=== PATIENT | female | born 1945 | race Caucasian/White ===

== ENCOUNTER 2016-10-22 10:55 | Emergency (ER) | payer MEDICARE ==
[2016-10-22 11:39] VITALS: BP 165/82
--- NOTE | 2016-10-22 12:35 | RAD ---
HISTORY: Status post fall, tender base of right fifth metatarsal and tender right lateral and medial malleolus COMPARISONS: None VIEWS: 3, Frontal, lateral, and oblique views of the right ankle FINDINGS: BONE DENSITY: Normal. BONES: There is an oblique nondisplaced fracture of the distal fibula. JOINTS: There is no arthropathy. The tibiofibular interval is preserved. ALIGNMENT: There is no dislocation. SOFT TISSUES: There is soft tissue swelling OTHER FINDINGS: None. IMPRESSION: OBLIQUE NONDISPLACED FRACTURE OF THE DISTAL FIBULA
--- NOTE | 2016-10-22 12:36 | RAD ---
HISTORY: Right ankle pain, trauma COMPARISONS: Right ankle film dated October 22, 2016 VIEWS: 2, Frontal and lateral views of the right foreleg FINDINGS: BONE DENSITY: Normal. BONES: Again noted is an oblique fracture of the distal fibula JOINTS: There is no arthropathy. ALIGNMENT: There is no dislocation. SOFT TISSUES: Unremarkable. OTHER FINDINGS: None. IMPRESSION: AGAIN NOTED IS AN OBLIQUE FRACTURE OF THE DISTAL FIBULA
--- NOTE | 2016-10-22 12:36 | RAD ---
HISTORY: Trauma, tender base of right fifth metatarsal COMPARISONS: Right ankle dated October 22, 2016 VIEWS: 3, Frontal, lateral, and oblique views of the right foot FINDINGS: BONE DENSITY: Normal. BONES: Again noted is a nondisplaced fracture of the distal fibula JOINTS: There is no arthropathy. ALIGNMENT: There is no dislocation. SOFT TISSUES: Unremarkable. OTHER FINDINGS: None. IMPRESSION: AGAIN NOTED IS A FRACTURE OF THE DISTAL FIBULA. NO ACUTE OSSEOUS INJURY TO THE RIGHT FOOT. IF SYMPTOMS PERSIST, RECOMMEND REPEAT IMAGING.
--- NOTE | 2016-10-22 14:01 | UC ---
Manolo Hurd Michael, scribed for Tabby Harrington DO on 10/22/16 at 1213 . Lower Extremity/Ankle HPI - HPI Summary HPI Summary: 70 y/o female comes to the [facility] after a mechanical fall that occurred at 1030 this morning. The pt reports right ankle and right foot pain that radiates up the RLE until the right knee. She states that the pain is aggravated with palpation and movement. The pt cannot bear weight on the right foot. She denies all of associated sx. The FHx is significant for cardiac disease and DM. - History of Current Complaint Chief Complaint: UCLowerExtremity Stated Complaint: ANKLE INJURY Hx Obtained From: Patient, Medical Records Onset/Duration: Sudden Onset, Lasting Hours, Still Present Severity Initially: Moderate Severity Currently: Moderate Pain Intensity: 9 Pain Scale Used: 0-10 Numeric Aggravating Factor(s): Standing, Other - palpation Able to Bear Weight: No - Allergies/Home Medications Allergies/Adverse Reactions: Allergies Allergy/AdvReac Type Severity Reaction Status Date / Time Magnesium Allergy Unknown Verified 10/22/16 11:31 Reaction Details PMH/Surg Hx/FS Hx/Imm Hx Endocrine History Of: Reports: Thyroid Disease Cardiovascular History Of: Denies: Pacemaker/ICD - Surgical History Surgical History: Yes Surgery Procedure, Year, and Place: GALLBLADDER. APPENDECTOMY. FATTY TUMOR REMOVED FROM NECK - Family History Known Family History: Positive: Cardiac Disease, Hypertension, Diabetes - Social History Occupation: Retired Lives: With Family Alcohol Use: None Substance Use Type: None Smoking Status (MU): Never Smoked Tobacco Have You Smoked in the Last Year: No - Immunization History Most Recent Influenza Vaccination: none Review of Systems Constitutional: Negative Skin: Negative Eyes: Negative ENT: Negative Respiratory: Negative Cardiovascular: Negative Gastrointestinal: Negative Genitourinary: Negative Motor: Other - right foot and ankle pain Neurovascular: Negative Musculoskeletal: Negative Neurological: Negative Psychological: Negative All Other Systems Reviewed And Are Negative: Yes Physical Exam Triage Information Reviewed: Yes Appearance: Well-Appearing, Pain Distress - mild, Obese Vital Signs: Initial Vital Signs Temp 99.4 F 10/22/16 11:34 Pulse 81 10/22/16 11:34 Resp 16 10/22/16 11:34 BP 165/82 10/22/16 11:34 Pulse Ox 98 10/22/16 11:34 Vital Signs Reviewed: Yes Eyes: Positive: Conjunctiva Clear. Negative: Discharge ENT: Positive: Hearing grossly normal. Negative: Muffled/hoarse voice Neck: Positive: Supple, Nontender Respiratory: Positive: Lungs clear, Normal breath sounds, No respiratory distress, No accessory muscle use Cardiovascular: Positive: RRR, No Murmur Musculoskeletal: Positive: Strength Intact, Edema @ - swelling over lateral maleolus, Other: - tender proximal 3rd fibular shaft, medial and lateral malleolus talar dome and base of the fifth metatarsal Neurological: Positive: Alert, Muscle Tone Normal Psychological Exam: Normal Psychological: Positive: Age Appropriate Behavior Skin: Positive: Other - warm. dry. nml color. Diagnostics - Radiology RLE XR Xray Interpretation: Positive (See Comments) - OBLIQUE NONDISPLACED FRACTURE OF THE DISTAL FIBULA Radiology Interpretation Completed By: Radiologist Right ankle XR Xray Interpretation: Positive (See Comments) - OBLIQUE NONDISPLACED FRACTURE OF THE DISTAL FIBULA Radiology Interpretation Completed By: Radiologist Right foot XR Xray Interpretation: Positive (See Comments) - OBLIQUE NONDISPLACED FRACTURE OF THE DISTAL FIBULA Radiology Interpretation Completed By: Radiologist Lower Extremity Course/Dx - Differential Dx/Diagnosis Differential Diagnosis/HQI/PQRI: Contusion, Fracture (Closed), Sprain Provider Diagnoses: ankle fx, suspected fx Discharge - Discharge Plan Condition: Stable Disposition: HOME Prescriptions: HYDROcodone/ACETAMIN 5-325 MG* [[place] 5-325 TAB*] 1 tab PO Q6H PRN #14 tab MDD 4 TABS PRN Reason: Pain Patient Education Materials: Ankle Fracture (ED), Crutch Instructions (ED), Splint Care (ED), SUSPECTED FRACTURE (ED) Referrals: Mimi Dawkins MD [Medical Doctor] - (follow up as per ortho or in 5-7 days) Chrissie Key [Primary Care Provider] - If Needed Additional Instructions: Your history and exam is suspicous for possible occult fracture of the base of the 5th metatarsal. This is a fracture that can have a bad outcome if not properly immobilized. So, we will treat this as a fracture until proven otherwise. That means that you must wear the WALKING BOOT 24 hours a day until the ortho provider tells you otherwise. You should also remain NON-WEIGHT BEARING until told otherwise by the orthopedist, so walking and standing should be done with the help of crutches. It will take 5-7 days to establish whether or not your bone is fractured. ORAL NARCOTIC MEDICATION: You have been given a prescription for pain control. This medication is a narcotic. It's best taken with food, as nausea can result if taken on an empty stomach. Don't operate machinery or drive within six hours of taking this medication. Do not combine this medicine with alcohol, or with any medication which can cause sedation (such as cold tablets or sleeping pills) unless you get permission from the physician. Narcotics tend to cause constipation. If possible, drink plenty of fluids and eat a diet high in fiber and fruits. THIS MEDICATION CAN MAKE YOU GROGGY AND UNSTABLE OF YOUR FEET. SO PLEASE TAKE CARE WHEN GOING FROM LAYING DOWN TO SEATED OR WHEN STANDING UP. IF YOU FEEL LIGHT HEADED WHEN CHANGING POSITIONS, PLEASE SIT OR LAY BACK DOWN TO AVOID FALLING. ESPECIALLY WHEN WAKING UP AT NIGHT TO PEE. The documentation as recorded by the Manolo seals Michael accurately reflects the service I personally performed and the decisions made by me, Tabby Harrington DO.
== END 2016-10-22 13:30 | disposition home or self-care (01) ==
LOC: UCEAST 10:55
DX: S82.434A Nondisplaced oblique fracture of shaft of right fibula, initial encounter for closed fracture (principal); W19.XXXA Unspecified fall, initial encounter
CPT/HCPCS: 99213; G0463

== ENCOUNTER 2019-02-08 14:38 | Emergency (ER) | payer MEDICARE ==
--- NOTE | 2019-02-08 15:23 | ED ---
HPI Chest Pain - HPI Summary HPI Summary: 73 year old F presenting to [facility] complains of midsternal tingliness since walking her dog at 09:30 today, 02/08/19. The patient rates the pain 2/10 in severity. Symptoms aggravated by exertion. Symptoms alleviated by nothing. Patient reports dizziness, nausea, diaphoresis, fatigue. She feels unwell. Patient denies lightheadedness, shortness of breath, headache. After walking her dog, patient sat down, ate breakfast, and felt better after drinking tea. Patient felt tired so she took a nap and woke up at 10:30. Patient said she carried plants from her porch to basement because it was snowing, then felt another episode of feeling unwell. Patient took her blood pressure which was [address] Harrington who referred patient to ED. Patient retook blood pressure which was 170 systolic. Patient feels better now in room. Patient has hx hypothyrodism. Vital signs while in room: HR 73 bpm, BP 148/71, O2 sat 100% Home Medications Medication Instructions Recorded Confirmed Type P Thyroid 3.5 PO DAILY 09/01/13 02/08/15 History Vitamin D 1 tab PO DAILY 02/08/15 10/22/16 History HYDROcodone/ACETAMIN 5-325 MG* 1 tab PO Q6H PRN #14 tab MDD 4 TABS 10/22/16 Rx [[place] 5-325 TAB*] - History of Current Complaint Chief Complaint: EDChestPainROMI Time Seen by Provider: 02/08/19 15:18 Hx Obtained From: Patient Onset/Duration: Started Hours Ago - 09:30 today, Still Present Timing: Intermittent Current Severity: Mild Pain Intensity: 2 Pain Scale Used: 0-10 Numeric Chest Pain Location: Mid Sternal Character: Other: - tingliness Aggravating Factor(s): Exertion Alleviating Factor(s): Nothing Associated Signs and Symptoms: Positive: Negative - lightheadedness, shortness of breath, headache, Other: - dizziness, nausea, diaphoresis, fatigue - Allergy/Home Medications Allergies/Adverse Reactions: Allergies Allergy/AdvReac Type Severity Reaction Status Date / Time magnesium Allergy Unknown Verified 02/08/19 14:44 Reaction Details National Institutes Of Health - NIH Scale Level of Consciousness: Alert/Keenly Responsive Ask Patient the Month and His/Her Age: Both Correct Ask Pt to Open/Close Eyes and Vessel Welder/Release Non-Paretic Hand: Both Correctly Best Gaze (Only Horizontal Eye Movement): Normal Visual Field Testing: No Visual Loss Facial Paresis-Pt to Smile & Close Eyes or Grimace Symmetry: Normal/Symmetrical Motor Function - Right Arm: No Drift-Holds 10 Seconds Motor Function - Left Arm: No Drift-Holds 10 Seconds Motor Function - Right Leg: No Drift-Holds 10 Seconds Motor Function - Left Leg: No Drift-Holds 10 Seconds Limb Ataxia-Must be out of Proportion to Weakness Present: Absent Sensory (Use Pinprick to Test Arms/Legs/Trunk/Face): Normal Best Language (Describe Picture, Name Items): No Aphasia Dysarthria (Read Several Words): Normal Extinction and Inattention: No Abnormality Total Score: 0 PMH/Surg Hx/FS Hx/Imm Hx Previously Healthy: No - vitamin D deficiency Endocrine/Hematology History: Reports: Hx Thyroid Disease Cardiovascular History: Denies: Hx Pacemaker/ICD GI History: Reports: Hx Irritable Bowel Musculoskeletal History: Denies: Hx Osteoporosis Sensory History: Reports: Hx Contacts or Glasses Denies: Hx Hearing Aid Opthamlomology History: Reports: Hx Contacts or Glasses Psychiatric History: Denies: Hx Panic Disorder - Surgical History Surgery Procedure, Year, and Place: GALLBLADDER. APPENDECTOMY. FATTY TUMOR REMOVED FROM NECK Infectious Disease History: No Infectious Disease History: Denies: Hx Clostridium Difficile, Hx Hepatitis, Hx Human Immunodeficiency Virus (HIV), Hx of Known/Suspected MRSA, Hx Shingles, Hx Tuberculosis, Hx Known/ Suspected VRE, Hx Known/Suspected VRSA, History Other Infectious Disease, Traveled Outside the [place] in Last 30 Days - Family History Known Family History: Positive: Cardiac Disease, Hypertension, Diabetes - Social History Alcohol Use: None Hx Substance Use: No Substance Use Type: Reports: None Hx Tobacco Use: No Smoking Status (MU): Never Smoked Tobacco Have You Smoked in the Last Year: No Review of Systems Positive: Fatigue, Skin Diaphoresis Positive: Other - midsternal tingliness Negative: Shortness Of Breath Positive: Nausea Neurological: Negative - Lightheadedness, Other - Dizziness Negative: Headache All Other Systems Reviewed And Are Negative: Yes Physical Exam - Summary Physical Exam Summary: Appearance: Ill-appearing, moderate pain distress, well-nourished Skin: Warm, color reflects adequate perfusion, dry Head: Normal Head/Face inspection, atraumatic Eyes: Conjunctiva clear ENT: Normal inspection Neck: Supple, no nodes, no JVD Respiratory: Lungs clear, normal breath sounds, no respiratory distress Cardio: RRR, No murmur, pulses normal, brisk capillary refill Abdomen: Soft, nontender Bowel sounds: Present Musculoskeletal: Strength Intact/ROM intact, no calf tenderness, no edema. Psychological: Normal Neuro: Alert, muscle tone normal, no focal deficit GCS: 15 Triage Information Reviewed: Yes Vital Signs On Initial Exam: Initial Vitals Temp Pulse Resp BP Pulse Ox 97.3 F 81 14 158/75 98 02/08/19 14:44 02/08/19 14:44 02/08/19 14:44 02/08/19 14:44 02/08/19 14:44 Vital Signs Reviewed: Yes Diagnostics - Vital Signs Vital Signs Temp Pulse Resp BP Pulse Ox 02/08/19 14:44 97.3 F 81 14 158/75 98 - Laboratory Result Diagrams: 02/08/19 15:55 02/08/19 15:55 Lab Statement: Any lab studies that have been ordered have been reviewed, and results considered in the medical decision making process. - Radiology CXR Radiology Interpretation Completed By: Radiologist Summary of Radiographic Findings: NO ACTIVE CARDIOPULMONARY DISEASE. ED physician has reviewed this report. - CT Brain CT Interpretation Completed By: Radiologist Summary of CT Findings: Negative noncontrast head CT. ED physician has reviewed this report. - EKG 1454 Cardiac Rate: NL - 66 BPM EKG Rhythm: Sinus Rhythm ST Segment: Non-Specific Ectopy: None EKG Comparison: Other - No prior to compare to Summary of EKG Findings: Nml AV/IV CT, nml QTc, and nml axis. No acute changes. Re-Evaluation - Re-Evaluation First Eval Re-Evaluation Time: 17:17 Change: Worse Comment: Patient has headache and nausea. Will give Zofran and Tylenol. Second Eval Re-Evaluation Time: 18:00 Change: Unchanged Comment: She has nausea, no pain. Her feet are cold and sweaty. Third Eval Re-Evaluation Time: 19:17 Change: Unchanged Comment: Patient has had her 3rd spell of dizziness. In room, BP 171/84, HR [address] BPM. Patient agrees to get CT. Fourth Eval Re-Evaluation Time: 19:38 Change: Unchanged Comment: BP 167/70, HR 79 BPM. Updated patient on what Dr. Merino recommended. Daughter is with patient. Fifth Eval Re-Evaluation Time: 21:05 Change: Unchanged Comment: Patient given CT and CXR results. Patient is agreeable to discharge. Chest Pain Course/Dx - Course Course Of Treatment: Patient medications reviewed this visit. Nurses notes reviewed. Allergies noted. CXR shows NO ACTIVE CARDIOPULMONARY DISEASE. EKG was normal. Bloodwork was unremarkable. Troponins were 0. UAs showed trace bacteria. NIH 0. Spoke with Dr. Merino, neurology, said that patient's symptoms do not sound like acute stroke at the time based on my report to him. He agrees with CT. He does not believe additional work up is needed. CT Brain shows Negative noncontrast head CT. Patient will be discharged home with follow up from Dr. Key, primary care provider, in 1-2 days. Patient was instructed to return to ED for new or worsening symptoms. Patient understands and is agreeable to discharge plan. - Diagnoses Provider Diagnoses: Hypertension, Lightheadedness, Dizziness - Provider Notifications Discussed Care Of Patient With: Steve Merino Time Discussed With Above Provider: 19:34 Instructed by Provider To: Other - Dr. Merino, neurology, said that patient's symptoms do not sound like acute stroke at the time based on my report to him. He agrees with CT. He does not believe additional work up is needed. Discharge - Sign-Out/Discharge Documenting (check all that apply): Patient Departure - Discharge Patient Received Moderate/Deep Sedation with Procedure: No - Discharge Plan Condition: Stable Disposition: HOME Patient Education Materials: Hypertension (ED), Lightheadedness (ED), Dizziness (ED) Referrals: Chrissie Key [Primary Care Provider] - 2 Days Tabby Harrington DO [Doctor of Osteopathy] - 2 Days Additional Instructions: Have definite follow up with Dr. Key, your primary care provider, in the next 1-2 days. We did not find any serious cause for your symptoms today. We have given you a copy of CT Brain and chest x-ray scans. Your labs will print with these discharge papers. Your blood pressure was quite elevated in the Emergency Department. You will need to have your blood pressure checked by your doctor and consider medication. Keep track of your blood pressure at home. Return to the Emergency Department for new or worsening symptoms. - Attestation Statements Document Initiated by Scribe: Yes Documenting Scribe: Charito Robertson Provider For Whom Scribe is Documenting (Include Credential): Roopa Aranda MD Scribe Attestation: Charito Hurd, scribed for Roopa Aranda MD on 02/08/19 at 2124. Status of Scribe Document: Ready
[2019-02-08] MEDS ORDERED: NS 0.9% 1000 ML** 2,000 ML IV SCH (15:45)
[2019-02-08 16:08] LABS: ABS Basophils 0.1 10^3/ul (0-0.2); ABS Eosinophils 0.1 10^3/ul (0-0.6); ABS Lymphocytes 2.5 10^3/ul (1.0-4.8); ABS Monocytes 0.7 10^3/ul (0-0.8); ABS Neutrophils 7.2 10^3/ul (1.5-7.7); ABS Nucleated RBC 0 10^3/ul; Eosinophil % 0.6 %; Hematocrit 39 % (33-41); Hemoglobin 13.2 g/dL (12.0-16.0); Lymphocyte % 23.5 %; Mean Corpuscular HGB Conc 34 g/dL (31-36); Mean Corpuscular Hemoglobin 30 pg (27-31); Mean Corpuscular Volume 89 fL (80-97); Mean Platelet Volume 9.8 fL (7.4-10.4); Nucleated Red Blood Cells % 0.1; Platelet Count 292 10^3/uL (150-450); Red Blood Count 4.37 10^6 /uL (3.70-4.87); Red Cell Distribution Width 13 % (10.5-15); White Blood Count 10.5 10^3/uL (3.5-10.8)
[2019-02-08 16:19] LABS: Activated Partial Thrombo Time 30.8 seconds (26.0-36.3); INR 0.98 (0.82-1.09)
[2019-02-08 16:22] LABS: Albumin 4.4 g/dL (3.2-5.2); Albumin/Globulin Ratio 1.5 (1-3); BUN/Creatinine Ratio 23.4 (8-20); Calcium 9.5 mg/dL (8.6-10.3); EGFR African American 109.8 (>60); EGFR Non-African American 90.7 (>60); Globulin 2.9 g/dL (2-4); Magnesium 2.1 mg/dL (1.9-2.7); Potassium 4.2 mmol/L (3.5-5.0); Total Bilirubin 0.3 mg/dL (0.2-1.0); Total Protein 7.3 g/dL (6.4-8.9)
[2019-02-08 16:30] LABS: CKMB ng/mL 1.9 ng/mL (0.6-6.3)
[2019-02-08 16:40] LABS: Urine Appearance Clear; Urine Bacteria Absent (Absent); Urine Bilirubin Negative (Negative); Urine Blood Negative (Negative); Urine Color Straw; Urine Glucose Negative (Negative); Urine Ketones Negative (Negative); Urine Nitrite Negative (Negative); Urine Protein Negative (Negative); Urine Red Blood Cell Trace(0-2/hpf) (Absent); Urine Specific Gravity 1.004 (1.010-1.030); Urine Squamous Epithelial Cell Present (Absent); Urine Urobilinogen Negative (Negative); Urine White Blood Cell Trace(0-5/hpf) (Absent)
[2019-02-08 16:42] LABS: T4, Total 8.16 mcg/dL (6.09-12.23)
[2019-02-08] MEDS ORDERED: Ondansetron INJ* 2 MG/ML VIAL IV ONE (17:17)
[2019-02-08] MEDS ORDERED: Acetaminophen TAB* 325 MG PO ONE (17:17)
[2019-02-08 21:41] VITALS: BP 173/83
--- NOTE | 2019-02-10 10:10 | PN ---
Progress Note - Progress Note Date of Service: 02/08/19 Note: Urine culture final grew strep group B [id number],[id number] Patient was not placed on antibiotics prior to discharge We will wait for any sensitivities and call patient If patient is asymptomatic, likely will not need treatment
== END 2019-02-08 21:40 | disposition home or self-care (01) ==
LOC: ED 14:38
DX: I10 Essential (primary) hypertension (principal); R42 Dizziness and giddiness; K58.9 Irritable bowel syndrome, unspecified; E03.9 Hypothyroidism, unspecified; Z79.899 Other long term (current) drug therapy; Z88.8 Allergy status to other drugs, medicaments and biological substances
CPT/HCPCS: 36415; 70450; 71045; 80053; 81003; 81015; 82550; 82553; 83605; 83735; 83880; 84436; 84484; 85025; 85379; 85610; 85730; 87077; 87086; 93005; 96361; 96365; 99285; A9270-GY; J2405

== ENCOUNTER 2019-08-21 11:13 | Emergency (ER) | payer MEDICARE ==
--- NOTE | 2019-08-21 11:46 | ED ---
Hypertension - HPI Summary HPI Summary: The patient is a 73 y/o F presenting to [facility] with a chief complaint of intermittent episodes of nausea, dizziness, and chills onset last night. She reports that the symptoms began last night but resolved as she went to sleep. She woke up with a headache that resolved, and she continued with her day and went to yoga. At her yoga class, she started to feel unwell again with the nausea, dizziness/lightheaded, and chills, so her instructor measured her BP to find it elevated of over 200 mmHg systolic. In the ED, she is still experiencing these mild symptoms, but she additionally c/o fatigue. She denies any CP, SOB, abd pain, back pain, weakness, or numbness. Currently, her symptoms are rated 0/10 in severity. PMHx: thyroid disease. FHx: cardiac disease , DM, HTN. Nonsmoker, no EtOH, no substance use. Medications reviewed. Allergies noted. - History of Current Complaint Chief Complaint: EDHypertension Stated Complaint: HIGH BP,NAUSEA PER PT Time Seen by Provider: 08/21/19 11:33 Hx Obtained From: Patient Onset/Duration: Started Hours Ago, Still Present Timing: Intermittent, Lasting Minutes Reported Blood Pressure Prior To Arrival: 200+ mmHg systolic Aggravating Factor(s): Nothing Alleviating Factor(s): Nothing Associated Signs & Symptoms: Headaches - resolved, Dizziness, Other: - fatigue, nausea, chills; Negative: CP, SBO, abd pain, back pain, weakness, numbness - Allergies/Home Medications Allergies/Adverse Reactions: Allergies Allergy/AdvReac Type Severity Reaction Status Date / Time magnesium Allergy Vomiting Verified 08/21/19 11:21 Home Medications: Home Medications Thyroid,Pork [[place] Thyroid] 180 mg PO DAILY 08/21/19 [History Confirmed ] PMH/Surg Hx/FS Hx/Imm Hx Endocrine/Hematology History: Reports: Hx Thyroid Disease - hypothyroidism Cardiovascular History: Denies: Hx Pacemaker/ICD GI History: Reports: Hx Irritable Bowel Musculoskeletal History: Denies: Hx Osteoporosis Sensory History: Reports: Hx Contacts or Glasses Denies: Hx Hearing Aid Opthamlomology History: Reports: Hx Contacts or Glasses Psychiatric History: Denies: Hx Panic Disorder - Surgical History Surgical History: Yes Surgery Procedure, Year, and Place: GALLBLADDER. APPENDECTOMY. FATTY TUMOR REMOVED FROM NECK Infectious Disease History: No Infectious Disease History: Denies: Hx Clostridium Difficile, Hx Hepatitis, Hx Human Immunodeficiency Virus (HIV), Hx of Known/Suspected MRSA, Hx Shingles, Hx Tuberculosis, Hx Known/ Suspected VRE, Hx Known/Suspected VRSA, History Other Infectious Disease, Traveled Outside the [place] in Last 30 Days - Family History Known Family History: Positive: Cardiac Disease, Hypertension, Diabetes - Social History Alcohol Use: None Hx Substance Use: No Substance Use Type: Reports: None Hx Tobacco Use: No Smoking Status (MU): Never Smoked Tobacco Have You Smoked in the Last Year: No Review of Systems Positive: Chills, Fatigue Negative: Chest Pain Negative: Shortness Of Breath Positive: Nausea. Negative: Abdominal Pain Negative: Other - back pain Neurological: Other - dizziness Positive: Headache - resolved. Negative: Weakness, Numbness All Other Systems Reviewed And Are Negative: Yes Physical Exam - Summary Physical Exam Summary: Constitutional: Well-developed, Well-nourished, Alert. (-) Distressed Skin: Warm, Dry HENT: Normocephalic; Atraumatic Eyes: Conjunctiva normal Neck: Musculoskeletal ROM normal neck. (-) JVD, (-) Nuchal rigidity Cardio: Rhythm regular, rate normal, Heart sounds normal; Intact distal pulses; Radial pulses are 2+ and symmetric. (-) Murmur Pulmonary/Chest wall: Effort normal. (-) Respiratory distress, (-) Wheezes, (-) Rales Abd: Soft. (-) Tenderness, (-) Distension, (-) Guarding, (-) Rebound Musculoskeletal: (-) Edema Lymph: (-) Cervical adenopathy Neuro: Alert, PERRL, Oriented x3, Strength normal, Cranial nerves II-XII are grossly intact. SILT, Strength 5/5 BUE and BLE, (-) Dysmetria, (-) Nystagmus, ambulates w steady gait. Psych: Mood and affect Normal Triage Information Reviewed: Yes Vital Signs On Initial Exam: Initial Vitals Temp Pulse Resp BP Pulse Ox 98.4 F 81 16 189/90 97 08/21/19 11:20 08/21/19 11:20 08/21/19 11:20 08/21/19 11:20 08/21/19 11:20 Vital Signs Reviewed: Yes Procedures - Sedation Patient Received Moderate/Deep Sedation with Procedure: No Diagnostics - Vital Signs Vital Signs Temp Pulse Resp BP Pulse Ox 08/21/19 11:20 98.4 F 81 16 189/90 97 - Laboratory Result Diagrams: 08/21/19 11:42 08/21/19 11:42 Lab Statement: Any lab studies that have been ordered have been reviewed, and results considered in the medical decision making process. - Radiology CXR Radiology Interpretation Completed By: Radiologist Summary of Radiographic Findings: Impression: No evidence for acute intrathoracic disease. Minimal LEFT basilar linear atelectasis. ED physician has reviewed this report. - EKG 1207 Cardiac Rate: NL - 77 BPM EKG Rhythm: Sinus Rhythm EKG Comparison: Other - Compared to 02/08/19, there are new T-wave inversions in III. Summary of EKG Findings: An EKG at 1207 reveals normal sinus rhythm at 77 BPM. T -wave inversions in III. No STEMI. ED physician has reviewed and interpreted this EKG. 1305 Cardiac Rate: NL - 79 BPM EKG Rhythm: Sinus Rhythm EKG Comparison: No Significant Change - Similar to previous EKG taken today. Summary of EKG Findings: An EKG at 1305 reveals normal sinus rhythm at 79 BPM. T -wave inversions in III. No STEMI. ED physician has reviewed and interpreted this EKG. Re-Evaluation - Re-Evaluation First Eval Re-Evaluation Time: 15:17 Change: Improved Comment: She is feeling better. We discussed all results and plan for discharge. She declined being put on a blood pressure medication in ED, she would like to follow up with her PCP. Hypertension Course/Dx - Course Course Of Treatment: 73-year-old female with no reported past medical history presents with nausea, elevated blood pressure. - Exam of the well-appearing female, no neuro deficits. Patient reports a minor headache, but denies that this is worse than her normal headache. - patient had similar presentation several months ago, had negative troponin 3 blood pressure at that time. In ED patient's blood pressure is 180 systolic, no chest pain. EKG here me to inversions in lead 3. Troponin negative. - Discussed with patient getting a repeat head CT however she states her symptoms unchanged and not severe. Heart score - HEART Score. Based on a HEART score of 3 the patient has a low risk (<2 % chance) of major adverse cardiac event within the next 6 weeks. I explained to the patient that based on the work-up today, her risk of heart attack is low and that he/she will be discharged with outpatient follow-up. Strict return precautions were discussed regarding worsening chest pain, new / atypical pain, shortness of breath, or any other serious concerns. Patient endorsed understanding and has no questions at this time. Source --. Jessica BE, Six AJ , Bety TANNER, Mayra MA, Mast EG, Williams A, Velnicolas RF,. Wardtorin AJ, Deandre R , Angus R, Wild SH, van Mauri R, Harrison TP, van den Claribel F,. Holly MJ, Cody JM, Umu AW, Pat PA. A prospective validation of. the HEART score for chest pain patients at the emergency department. Int J. Cardiol. 2013 Jul 3;168(3):2153-8. 0-3: 2.5% risk of adverse cardiac event. In the HEART Score, these patients were discharged. (0.99% retrospective) (1.7% prospective). 4-6: 20.3% risk of adverse cardiac event, suggesting admission to the hospital. 11.6% (16.6% prospective). =7: 72.7% risk of adverse cardiac event, suggesting early invasive measures with these patients. 65.2% (50.1% prospective) - Diagnoses Provider Diagnoses: Hypertension Discharge ED - Sign-Out/Discharge Documenting (check all that apply): Patient Departure - Patient will be discharged home. - Discharge Plan Condition: Stable Disposition: HOME Patient Education Materials: Hypertension (ED) Referrals: Chrissie Key [Primary Care Provider] - 3 Days Additional Instructions: You were seen in the emergency department for nausea and high blood pressure. Your EKG (heart tracing), labs and chest x-ray did not show any cause for pain. Your troponin was normal. It is important that you follow up with you primary care doctor in the next 1-2 days for blood pressure recheck. Please return to the emergency department for continued headaches, chest pain, trouble breathing , passing out, or if you're concerned. - Billing Disposition and Condition Condition: STABLE Disposition: Home - Attestation Statements Document Initiated by Scribe: Yes Documenting Scribe: Rhiannon Garcia Provider For Whom Scribe is Documenting (Include Credential): Dr. Roby Allen MD Scribe Attestation: I, Rhiannon Garcia, scribed for Dr. Roby Allen MD on 08/21/19 at 1914. Scribe Documentation Reviewed: Yes Provider Attestation: The documentation as recorded by the Rhiannon seals accurately reflects the service I personally performed and the decisions made by me, Dr. Roby Allen MD Status of Scrkristal Document: Viewed
[2019-08-21] MEDS ORDERED: hydrALAZINE TAB* 25 MG PO ONE (11:48)
[2019-08-21 11:50] LABS: ABS Basophils 0.1 10^3/ul (0-0.2); ABS Lymphocytes 1.8 10^3/ul (1.0-4.8); ABS Monocytes 0.8 10^3/ul (0-0.8); ABS Neutrophils 7.8 10^3/ul (1.5-7.7); Eosinophil % 0.5 %; Hematocrit 40 % (35-47); Hemoglobin 13.6 g/dL (12.0-16.0); Lymphocyte % 16.9 %; Mean Corpuscular HGB Conc 34 g/dL (31-36); Mean Corpuscular Hemoglobin 30 pg (27-31); Mean Corpuscular Volume 90 fL (80-97); Mean Platelet Volume 9.6 fL (7.4-10.4); Platelet Count 317 10^3/uL (150-450); Red Blood Count 4.49 10^6 /uL (3.70-4.87); Red Cell Distribution Width 13 % (10-15); White Blood Count 10.5 10^3/uL (3.5-10.8)
[2019-08-21 12:08] LABS: Albumin 4.4 g/dL (3.2-5.2); Albumin/Globulin Ratio 1.6 (1-3); BUN/Creatinine Ratio 26.1 (8-20); Calcium 9.7 mg/dL (8.6-10.3); EGFR African American 100.6 (>60); EGFR Non-African American 83.2 (>60); Globulin 2.7 g/dL (2-4); Potassium 4.5 mmol/L (3.5-5.0); Total Bilirubin 0.3 mg/dL (0.2-1.0); Total Protein 7.1 g/dL (6.4-8.9)
[2019-08-21 15:34] VITALS: BP 149/84
== END 2019-08-21 15:34 | disposition home or self-care (01) ==
LOC: ED 11:13
DX: I10 Essential (primary) hypertension (principal); E03.9 Hypothyroidism, unspecified; Z79.890 Hormone replacement therapy; Z90.89 Acquired absence of other organs
CPT/HCPCS: 36415; 71046; 80053; 84484; 85025; 93005; 99283; A9270-GY

== ENCOUNTER 2019-09-22 17:19 | Emergency (ER) | payer MEDICARE ==
[2019-09-22 20:19] LABS: ABS Lymphocytes 0.6 10^3/ul (1.0-4.8); ABS Monocytes 0.5 10^3/ul (0-0.8); ABS Neutrophils 8.5 10^3/ul (1.5-7.7); Hematocrit 37 % (35-47); Hemoglobin 12.5 g/dL (12.0-16.0); Lymphocyte % 5.7 %; Mean Corpuscular HGB Conc 34 g/dL (31-36); Mean Corpuscular Hemoglobin 30 pg (27-31); Mean Corpuscular Volume 90 fL (80-97); Mean Platelet Volume 9.4 fL (7.4-10.4); Platelet Count 285 10^3/uL (150-450); Red Blood Count 4.14 10^6 /uL (3.70-4.87); Red Cell Distribution Width 13 % (10-15); White Blood Count 9.7 10^3/uL (3.5-10.8)
[2019-09-22 20:34] LABS: ALT 18 U/L (7-52); AST 15 U/L (13-39); Albumin 3.9 g/dL (3.2-5.2); Albumin/Globulin Ratio 1.4 (1-3); Alkaline Phosphatase 83 U/L (34-104); Anion Gap 7 mmol/L (2-11); BUN/Creatinine Ratio 26.2 (8-20); Blood Urea Nitrogen 16 mg/dL (6-24); C Reactive Protein 71.43 mg/L (<8.01); CO2 Carbon Dioxide 25 mmol/L (22-32); Chloride 104 mmol/L (101-111); EGFR Non-African American 95.9 (>60); Globulin 2.8 g/dL (2-4); Glucose 119 mg/dL (70-100); Potassium 3.5 mmol/L (3.5-5.0); Sodium 136 mmol/L (135-145); Total Protein 6.7 g/dL (6.4-8.9)
[2019-09-22] MEDS ORDERED: NS 0.9% 1000 ML** 1,000 ML IV ONE ×2 (21:10→21:33)
--- NOTE | 2019-09-22 21:32 | ED ---
Complex/Multi-Sys Presentation - HPI Summary HPI Summary: This pt is a 73 y/o female presenting to [facility] c/o nausea, vomiting, and diarrhea since last night at 2200. Pt describes diarrhea as watery. She also reports abd pain "gut pain" and lightheadedness. Pt states she has been unable to keep any liquid down. Pt notes her mouth is dry and feels thirsty. Denies fever, chills, sweats. Denies erythema of eyes, sore throat, CP, SOB, cough, dysuria, hematuria, myalgia, edema, rash, or dizziness. Her PCP is Chrissie Key. Pt reports she has been having inconsistent bursts of HTN but has not been diagnosed with HTN. - History Of Current Complaint Chief Complaint: EDNauseaVomitDiarrh Hx Obtained From: Patient Onset/Duration: Lasting Hours - 24, Still Present Timing: Hours - 24 Severity Currently: Moderate Location: Pain At: - abdomen Aggravating Factor(s): nothing Alleviating Factor(s): nothing Associated Signs And Symptoms: Positive: Nausea, Vomiting, Diarrhea, Abdominal Pain, Other - POSITIVE: lightheadedness. Negative: Dizziness, SOB, Chest Pain, Fever - Allergies/Home Medications Allergies/Adverse Reactions: Allergies Allergy/AdvReac Type Severity Reaction Status Date / Time magnesium Allergy Vomiting Verified 09/22/19 17:31 PMH/Surg Hx/FS Hx/Imm Hx Endocrine/Hematology History: Reports: Hx Thyroid Disease - hypothyroidism Cardiovascular History: Denies: Hx Pacemaker/ICD GI History: Reports: Hx Irritable Bowel Musculoskeletal History: Denies: Hx Osteoporosis Sensory History: Reports: Hx Contacts or Glasses Denies: Hx Hearing Aid Opthamlomology History: Reports: Hx Contacts or Glasses Psychiatric History: Denies: Hx Panic Disorder - Surgical History Surgical History: Yes Surgery Procedure, Year, and Place: GALLBLADDER. APPENDECTOMY. FATTY TUMOR REMOVED FROM NECK Infectious Disease History: No Infectious Disease History: Denies: Hx Clostridium Difficile, Hx Hepatitis, Hx Human Immunodeficiency Virus (HIV), Hx of Known/Suspected MRSA, Hx Shingles, Hx Tuberculosis, Hx Known/ Suspected VRE, Hx Known/Suspected VRSA, History Other Infectious Disease, Traveled Outside the [place] in Last 30 Days - Family History Known Family History: Positive: Cardiac Disease, Hypertension, Diabetes - Social History Alcohol Use: None Hx Substance Use: No Substance Use Type: Reports: None Hx Tobacco Use: No Smoking Status (MU): Never Smoked Tobacco Have You Smoked in the Last Year: No Review of Systems Negative: Fever, Chills Negative: Erythema Negative: Sore Throat Negative: Chest Pain Negative: Shortness Of Breath, Cough Positive: Abdominal Pain, Vomiting, Diarrhea, Nausea Negative: dysuria, hematuria Negative: Myalgia, Edema Negative: Rash Neurological: Other - POSITIVE: lightheadedness. NEGATIVE: dizziness All Other Systems Reviewed And Are Negative: Yes Physical Exam - Summary Physical Exam Summary: Constitutional: Well-developed, Well-nourished, Alert. (-) Distressed Skin: Warm, Dry HENT: Normocephalic; Atraumatic Eyes: Conjunctiva normal Neck: Musculoskeletal ROM normal neck. (-) JVD, (-) Stridor, (-) Tracheal deviation Cardio: Rhythm regular, rate normal, Heart sounds normal; Intact distal pulses; The pedal pulses are 2+ and symmetric. Radial pulses are 2+ and symmetric. (-) Murmur Pulmonary/Chest wall: Effort normal. (-) Respiratory distress, (-) Wheezes, (-) Rales Abd: Soft, (-) tenderness, (-) Distension, (-) Guarding, (-) Rebound Musculoskeletal: (-) Edema Lymph: (-) Cervical adenopathy Neuro: Alert, Oriented x3 Psych: Mood and affect Normal Triage Information Reviewed: Yes Vital Signs On Initial Exam: Initial Vitals Temp Pulse Resp BP Pulse Ox 98.9 F 101 19 138/81 96 09/22/19 17:28 09/22/19 17:28 09/22/19 17:28 09/22/19 17:28 09/22/19 17:28 Vital Signs Reviewed: Yes Procedures - Sedation Patient Received Moderate/Deep Sedation with Procedure: No Diagnostics - Vital Signs Vital Signs Temp Pulse Resp BP Pulse Ox 09/22/19 18:45 99.8 F 93 20 151/67 96 09/22/19 17:28 98.9 F 101 19 138/81 96 - Laboratory Lab Results: Lab Results 09/22/19 09/22/19 09/22/19 Range/Units 20:07 20:07 20:07 WBC 9.7 (3.5-10.8) 10^3/uL RBC 4.14 (3.70-4.87) 10^6 /uL Hgb 12.5 (12.0-16.0) g/dL Hct 37 (35-47) % MCV 90 (80-97) fL MCH 30 (27-31) pg MCHC 34 (31-36) g/dL RDW 13 (10-15) % Plt Count 285 (150-450) 10^3/uL MPV 9.4 (7.4-10.4) fL Neut % (Auto) 88.5 % Lymph % (Auto) 5.7 % [place] % (Auto) 5.6 % Eos % (Auto) 0.0 % Baso % (Auto) 0.2 % Absolute Neuts (auto) 8.5 H (1.5-7.7) 10^3/ul Absolute Lymphs (auto) 0.6 L (1.0-4.8) 10^3/ul Absolute Monos (auto) 0.5 (0-0.8) 10^3/ul Absolute Eos (auto) 0.0 (0-0.6) 10^3/ul Absolute Basos (auto) 0.0 (0-0.2) 10^3/ul Absolute Nucleated RBC 0.0 10^3/ul Nucleated RBC % 0.0 Sodium 136 (135-145) mmol/L Potassium 3.5 (3.5-5.0) mmol/L Chloride 104 (101-111) mmol/L Carbon Dioxide 25 (22-32) mmol/L Anion Gap 7 (2-11) mmol/L BUN 16 (6-24) mg/dL Creatinine 0.61 (0.51-0.95) mg/dL Est GFR ( Amer) 116.0 (>60) Est GFR (Non-Af Amer) 95.9 (>60) BUN/Creatinine Ratio 26.2 H (8-20) Glucose 119 H (70-100) mg/dL Lactic Acid 0.7 (0.5-2.0) mmol/L Calcium 9.0 (8.6-10.3) mg/dL Total Bilirubin 0.30 (0.2-1.0) mg/dL AST 15 (13-39) U/L ALT 18 (7-52) U/L Alkaline Phosphatase 83 (34-104) U/L C-Reactive Protein 71.43 H (<8.01) mg/L Total Protein 6.7 (6.4-8.9) g/dL Albumin 3.9 (3.2-5.2) g/dL Globulin 2.8 (2-4) g/dL Albumin/Globulin Ratio 1.4 (1-3) Lipase < 10 L (11.0-82.0) U/L Result Diagrams: 09/22/19 20:07 09/22/19 20:07 Lab Statement: Any lab studies that have been ordered have been reviewed, and results considered in the medical decision making process. Complex Multi-Symp Course/Dx Assessment/Plan: Pt is a 73 y/o female presenting to [facility] c/o nausea, vomiting , and diarrhea since last night at 2200. Pt describes diarrhea as watery. She also reports abd pain "gut pain" and lightheadedness. Pt states she has been unable to keep any liquid down. Pt notes her mouth is dry and feels thirsty. Denies fever, chills, sweats. Lab results remarkable for glucose of 119, CRP of 71.43, and lipase <10. In the ED course the pt was given IV fluids and Zofran. Mildly volume depleted, plan for volume repletion, re-evaluation and PO challenge. Pt will be signed out to Dr. Rivas pending re-eval and PO challenge. - Diagnoses Provider Diagnoses: Nausea, vomiting, and diarrhea Discharge ED - Sign-Out/Discharge Documenting (check all that apply): Sign-Out Patient Signing out patient TO: Carlos Rivas - pending re-eval and PO challenge - Discharge Plan Condition: Stable Referrals: Chrissie Key [Primary Care Provider] - - Attestation Statements Document Initiated by Scribe: Yes Documenting Scribe: Margy Henriquez Provider For Whom Scribe is Documenting (Include Credential): Rg Jett MD Scribe Attestation: Margy Hurd, scribed for Rg Jett MD on 09/22/19 at 2217. Status of Scribe Document: Ready
[2019-09-22] MEDS ORDERED: Ondansetron INJ* 2 MG/ML VIAL IV ONE (21:33)
--- NOTE | 2019-09-22 22:28 | ED ---
Progress - Progress Note Progress Note: Pt is a signout from Dr. Jett at 2200 pending re-eval and PO challenge. Course/Dx - Course Course Of Treatment: Pt is a signout from Dr. Jett at 2200 pending re-eval and PO challenge. Pt will be discharged once she can keep her fluids down. She is stable and agreeable with this plan. - Diagnoses Provider Diagnoses: Nausea, vomiting, and diarrhea Discharge ED - Sign-Out/Discharge Documenting (check all that apply): Patient Departure, Receiving Sign-Out Receiving patient FROM: Rg Jett - Discharge Plan Condition: Improved Disposition: HOME Prescriptions: Diphenoxylat/Atrop 2.5-0.025M* [Lomotil TAB*] 1 tab PO QID PRN #12 tab MDD 4 PRN Reason: Diarrhea Ondansetron ODT TAB* [Zofran 4 MG Odt TAB*] 8 mg PO Q6H PRN #12 tab.odt PRN Reason: Nausea Patient Education Materials: Gastroenteritis (ED), Acute Nausea and Vomiting ( ED) Referrals: Chrissie Key [Primary Care Provider] - If Needed Additional Instructions: I would recommend sticking to clear liquid diet at least through the morning, if you are feeling better you can advance to BRAT diet in the afternoon. - Billing Disposition and Condition Condition: IMPROVED Disposition: Home - Attestation Statements Document Initiated by Vincent: Yes Documenting Scribe: Rohini Daniel Provider For Whom Vincent is Documenting (Include Credential): Carlos Rivas MD. Scribe Attestation: Rohini Hurd scribed for Carlos Rivas MD. on 09/23/19 at 0626. Scribe Documentation Reviewed: Yes Provider Attestation: The documentation as recorded by the Rohini seals accurately reflects the service I personally performed and the decisions made by , Carlos Rivas MD. Status of Scribe Document: Viewed
[2019-09-23] MEDS ORDERED: Diphenoxylat/Atrop 2.5-0.025M* 1 TAB PO ONE (00:01)
[2019-09-23 01:15] VITALS: BP 157/68
== END 2019-09-23 01:21 | disposition home or self-care (01) ==
LOC: ED 17:19
DX: R11.2 Nausea with vomiting, unspecified (principal); R19.7 Diarrhea, unspecified; E03.9 Hypothyroidism, unspecified; Z90.49 Acquired absence of other specified parts of digestive tract; Z90.89 Acquired absence of other organs
CPT/HCPCS: 36415; 80053; 83605; 83690; 85025; 86140; 96361; 96374; 99284; A9270-GY; J2405